=== PATIENT | female | born 1935 | race Caucasian/White ===

== ENCOUNTER 2018-07-10 14:39 | Inpatient (IN) | payer OTHER, BC ==
[~2018-07-10] VITALS: Ht 160 cm; Wt 55.0 kg
[2018-07-10 14:50] VITALS: Ht 160 cm; Wt 55.0 kg
[2018-07-10 16:40] LABS: BASOPHIL % 0.4 % (0-2); PLATELET COUNT 197 x10^3mcL (130-400)
[2018-07-10 17:09] LABS: CALCIUM 7.4 mg/dL (8.5-10.1); CARBON DIOXIDE 22.8 mmol/L (21-32); CHLORIDE SERUM 95 mmol/L (98-107); CREATININE SERUM 1.7 mg/dL (0.6-1.0); GLUCOSE SERUM 116 mg/dL (74-106); POTASSIUM SERUM 3.8 mmol/L (3.5-5.1); SODIUM SERUM 127 mmol/L (136-145)
[2018-07-10 17:13] LABS: T3 TOTAL 0.65 ng/mL
[2018-07-10 17:19] LABS: FREE T4 1.39 ng/dL (0.76-1.46); FREE THYROXINE INDEX 3.1 ug/dL (1.4-4.5)
[2018-07-10 17:20] LABS: ALKALINE PHOSPHATASE 103 U/L (46-116); ALT/SGPT 54 U/L (14-59); AST/SGOT 31 U/L (15-37); BILIRUBIN TOTAL 1.3 mg/dL (0.20-1.00); TOTAL PROTEIN, SERUM 6.3 g/dL (6.4-8.2)
[2018-07-10 17:22] LABS: ALBUMIN 2.6 g/dL (3.4-5.0)
[2018-07-10 17:25] LABS: CK-MB 0.5 ng/mL (0-3.6)
[2018-07-10 17:33] LABS: UA SPECIFIC GRAVITY 1.025 (1.005-1.035); microscopic required? YES; urine erythrocyte 1+ (NEGATIVE)
[2018-07-10 17:34] LABS: C REACTIVE PROTEIN 27.6 mg/dL (<=0.9)
[2018-07-10 18:07] LABS: ERYTHROCYTE SED RATE 92 mm/hr (0-30)
[2018-07-10] MEDS ORDERED: METFORMIN HYDR500 M1 PO ×2 (18:24→20:33)
[2018-07-10] MEDS ORDERED: ASPIR 8181 MG PO (18:24)
[2018-07-10] MEDS ORDERED: ROBAFEN100 MG/5 M PO (18:24)
[2018-07-10] MEDS ORDERED: ZITHROMAX Z-PA250 MG PO (18:24)
[2018-07-10] MEDS ORDERED: EVISTA60 MG PO (18:24)
[2018-07-10] MEDS ORDERED: VITAMIN-D1000 IU PO (18:25)
[2018-07-10] MEDS ORDERED: BENAZEPRIL HYDR20 M1 PO (18:25)
[2018-07-10] MEDS ORDERED: DICLOFENAC SODI75 MG PO (18:25)
[2018-07-10] MEDS ORDERED: SIMVASTATIN10 M1 PO (18:26)
[2018-07-10 19:19] VITALS: BP 166/70
[2018-07-10 19:26] LABS: MAGNESIUM 1.5 mg/dL (1.8-2.4); PHOSPHOROUS 2.4 mg/dL (2.5-4.9)
[2018-07-10] MEDS ORDERED: ASPIRIN ADULT L81 M5 PO (20:32)
[2018-07-10 22:09] LABS: IRON 8 ug/dL (50-170); TOTAL IRON BINDING CAPACITY 159 ug/dL (250-450)
[2018-07-11 04:36] VITALS: BP 153/54
[2018-07-11 07:11] LABS: BASOPHIL % 0.3 % (0-2); PLATELET COUNT 186 x10^3mcL (130-400); RED CELL DISTRIBUTION WIDTH 14.5 % (11.5-14.5)
[2018-07-11 07:28] LABS: CALCIUM 7.3 mg/dL (8.5-10.1); CARBON DIOXIDE 21.6 mmol/L (21-32); CHLORIDE SERUM 98 mmol/L (98-107); CREATININE SERUM 1.3 mg/dL (0.6-1.0); GLUCOSE SERUM 86 mg/dL (74-106); POTASSIUM SERUM 3.8 mmol/L (3.5-5.1); SODIUM SERUM 129 mmol/L (136-145)
[2018-07-11 09:21] VITALS: BP 153/63
[2018-07-11 12:37] VITALS: BP 147/46
[2018-07-11 17:43] VITALS: BP 154/65
[2018-07-11 21:15] VITALS: BP 147/56
[2018-07-12 04:57] VITALS: BP 156/46
[2018-07-12 06:42] LABS: BASOPHIL % 0.6 % (0-2); PLATELET COUNT 229 x10^3mcL (130-400); RED CELL DISTRIBUTION WIDTH 14.5 % (11.5-14.5)
[2018-07-12 07:21] LABS: CALCIUM 8.1 mg/dL (8.5-10.1); CHLORIDE SERUM 103 mmol/L (98-107); CREATININE SERUM 1.2 mg/dL (0.6-1.0); GLUCOSE SERUM 98 mg/dL (74-106); MAGNESIUM 2.1 mg/dL (1.8-2.4); PHOSPHOROUS 2.8 mg/dL (2.5-4.9); POTASSIUM SERUM 4.1 mmol/L (3.5-5.1); SODIUM SERUM 137 mmol/L (136-145)
[2018-07-12 09:00] VITALS: BP 182/50
[2018-07-12 12:27] VITALS: BP 159/58
[2018-07-12 13:02] LABS: AMPHETAMINE QUAL UR NONE DETECTED (See below)
[2018-07-12 21:39] VITALS: BP 160/48
[2018-07-13 05:19] VITALS: BP 176/62
[2018-07-13 06:42] LABS: CARBON DIOXIDE 22.3 mmol/L (21-32); CHLORIDE SERUM 106 mmol/L (98-107); GLUCOSE SERUM 97 mg/dL (74-106); POTASSIUM SERUM 3.9 mmol/L (3.5-5.1); SODIUM SERUM 139 mmol/L (136-145)
[2018-07-13 08:16] LABS: BASOPHIL % 0.9 % (0-2); PLATELET COUNT 205 x10^3mcL (130-400); RED CELL DISTRIBUTION WIDTH 14.8 % (11.5-14.5)
[2018-07-13 09:52] VITALS: BP 188/63
[2018-07-13 11:59] VITALS: BP 164/44
[2018-07-13] MEDS ORDERED: AUG500 PO (12:26)
[2018-07-13 13:25] VITALS: BP 164/44
== END 2018-07-13 15:30 | disposition home or self-care (01) | DRG 871 ==
LOC: ED 14:39 → DU 17:56 → MU 07-12 11:09
PROVIDERS: Specialist; ADMIT Internal Medicine
DX: A41.9 Sepsis, unspecified organism (principal); N17.0 Acute kidney failure with tubular necrosis; E43 Unspecified severe protein-calorie malnutrition; N39.0 Urinary tract infection, site not specified; E87.4 Mixed disorder of acid-base balance; E11.65 Type 2 diabetes mellitus with hyperglycemia; I89.0 Lymphedema, not elsewhere classified; I10 Essential (primary) hypertension; E83.42 Hypomagnesemia; E83.39 Other disorders of phosphorus metabolism; E83.51 Hypocalcemia; D64.9 Anemia, unspecified; E78.5 Hyperlipidemia, unspecified; M19.90 Unspecified osteoarthritis, unspecified site; Z79.82 Long term (current) use of aspirin; Z68.22 Body mass index [BMI] 22.0-22.9, adult; Z79.84 Long term (current) use of oral hypoglycemic drugs
CPT/HCPCS: 36600; 82962; 84439; 87804; 97110-GP; 97116-GP; 97530-GP; J0696; J7030; Q0092